=== PATIENT | male | born 1995 | race Asian ===

== ENCOUNTER 2023-01-15 22:18 | Emergency (ER) | payer OTHER ==
[2023-01-15] MEDS ORDERED: Ketorolac Tromethamine 30 MG/ML VIAL ONE (23:27)
[2023-01-15] MEDS ORDERED: Metoclopramide HCl 10 MG TAB ONE (23:27)
[2023-01-15] MEDS ORDERED: Tetracaine 0.5% PF 4 ML BOT ONE (23:27)
[2023-01-15] MEDS ORDERED: Acetaminophen 500 MG TAB ONE (23:28)
== END 2023-01-16 00:10 | disposition home or self-care (01) ==
LOC: CSHERS 22:18
DX: G43.909 Migraine, unspecified, not intractable, without status migrainosus (principal)
CPT/HCPCS: 96372; 99283; J1885